=== PATIENT | male | born 1945 | race Two or more races ===

== ENCOUNTER 2016-05-21 20:13 | Emergency (ER) | payer MEDICARE ==
[~2016-05-21] VITALS: Ht 183.5 cm; Wt 118.4 kg
[2016-05-21 20:47] VITALS: BP 184/98
[2016-05-21 21:30] VITALS: BP 148/77
[2016-05-21 21:30] LABS: MEAN CORPUSCULAR HEMOGLOBIN 30.8 PG (27.0-31.0); MEAN CORPUSCULAR HGB CONC 29.9 G/DL (32.0-36.0); MEAN CORPUSCULAR VOLUME 103 FL (80-99); MEAN PLATELET VOLUME 7.2 FL (6.5-10.1); PLATELET COUNT 151 K/UL (150-450); RED BLOOD COUNT 2.46 M/UL (4.70-6.10); RED CELL DISTRIBUTION WIDTH 18.1 % (11.6-14.8); WHITE BLOOD COUNT 5.7 K/UL (4.8-10.8)
[2016-05-21 21:48] LABS: INR 1.3 (0.9-1.1); PROTHROMBIN TIME 12.9 SEC (9.30-11.50)
[2016-05-21 21:54] LABS: TROPONIN I < 0.30 ng/mL (<=0.30)
[2016-05-21 21:57] LABS: ALANINE AMINOTRANSFERASE 31 U/L (3-41); ALBUMIN/GLOBULIN RATIO 0.4 (1.0-2.7); ANION GAP 17 (5-15); ASPARTATE AMINO TRANSFERASE 51 U/L (5-40); CALCIUM 8.1 mg/dL (8.6-10.2); CARBON DIOXIDE 25 mEQ/L (20-30); CHLORIDE 94 mEQ/L (98-107); CREATININE 1.1 mg/dL (0.7-1.2); HEMOLYSIS 217; LIPASE 23 U/L (< 60); SODIUM 136 mEQ/L (135-145); TOTAL PROTEIN 8.7 g/dL (6.6-8.7)
[2016-05-21 22:07] LABS: CKMB 1.7 ng/mL (< 6.7)
[2016-05-21 22:17] LABS: APPEARANCE,URINE SLIGHTLY CLOUDY
[2016-05-21 22:18] LABS: KETONES,URINE NEGATIVE (NEGATIVE); LEUKOCYTE ESTERASE ,URINE NEGATIVE (NEGATIVE); NITRITE,URINE NEGATIVE (NEGATIVE); PH,URINE 5.5 (4.5-8.0); PROTEIN,URINE 2+ (NEGATIVE); UROBILINOGEN,URINE 1 MG/DL (0.0-1.0)
[2016-05-21 22:28] LABS: RBC,URINE 0-2 /HPF (0 - 0)
[2016-05-21 22:29] LABS: AMORPHOUS SEDIMENT,UR FEW /LPF; BACTERIA,URINE MODERATE /HPF; SQUAMOUS EPITHELIAL CELL,UR FEW /LPF (NONE/OCC)
[2016-05-21 22:30] VITALS: BP 162/85
[2016-05-21 22:39] LABS: BAND NEUTROPHILS % (MANUAL) 1 % (0-8); EOSINOPHILS % (MANUAL) 2 % (0-3); LYMPHOCYTES % (MANUAL) 4 % (20-45); NEUTROPHILS % (MANUAL) 91 % (45-75); NUCLEATED RED BLOOD CELLS 1 /100 WBC; TOTAL CELLS COUNTED 100
[2016-05-21 22:40] LABS: ANISOCYTOSIS 2+; MACROCYTES 2+; POLYCHROMASIA 1+
[2016-05-21 22:41] LABS: BASOPHILS % (MANUAL) 0 % (0-2); PLATELET ESTIMATE DECREASED; PLATELET MORPHOLOGY NORMAL
[2016-05-21] MEDS ORDERED: cefTRIAXone 1 GM in NS 55 ML IVPB ONE (22:45)
[2016-05-21 23:37] VITALS: BP 151/85
--- NOTE | 2016-05-22 | Emergency Room Report ---
Physical Exam Vital Signs Date Time Temp Pulse Resp B/P Pulse Ox O2 Delivery O2 Flow Rate FiO2 05/21/16 20:14 99.7 142 22 184/123 100 Non-Rebreather Medical Decision Making Diagnostic Impression: Primary Impression: CHF exacerbation Qualified Codes: I50.9 - Heart failure, unspecified Additional Impressions: Anemia Qualified Codes: D64.9 - Anemia, unspecified UTI (urinary tract infection) Qualified Codes: N30.00 - Acute cystitis without hematuria Proteinuria Chest pain Qualified Codes: R07.9 - Chest pain, unspecified Hyperglycemia Obesity (BMI 30-39.9) ER Course Patient was signed out to mt. He present with chest pain and shortness of breath. Labs show anemia and CHF. CT scan showed no PE. Does have CHF and probably hypertension Patient is otherwise stable for transfer to [place]. Lab Results Impression labs with anemia and elevated bnp. EKG Diagnostic Results Rate: normal Rhythm: NSR ST Segments: no acute changes Rhythm Strip Diag. Results EP Interpretation: yes Rate: 70 Rhythm: NSR, no PVC's, no ectopy Chest X-Ray Diagnostic Results EP Interpretation: Yes Findings: no consolidation, no effusion, no pneumothorax, other - cm with congestion Number of Views: 1 CT/MRI/US Diagnostic Results CT/MRI/US Diagnostic Results : Imaging Test Ordered: ct chest Impression Read by radiologist. No PE. chf Last Vital Signs Date Time Temp Pulse Resp B/P Pulse Ox O2 Delivery O2 Flow Rate FiO2 05/21/16 23:37 98.5 88 16 151/85 98 Room Air Status: improved Disposition: XFER SHT-TRM HOSP Condition: Serious Referrals: [facility] (PCP) JUAN CARLOS PAUL M.D. May 22, 2016 00:00
[2016-05-22] MEDS ORDERED: Mylanta II UD 30ml ONE (00:33)
[2016-05-22 01:47] VITALS: BP 156/94
[2016-05-22 02:39] VITALS: BP 168/87
--- NOTE | 2016-05-22 09:53 | Diagnostic Imaging Report ---
Indication: Chest pain Technique: One view of the chest Comparison: none Findings: Heart is enlarged. There is fullness to the right hilar region, probably representing prominent vasculature. There is mild interstitial congestion. No focal airspace consolidation. No definite effusions Impression: Suspect mild interstitial congestion Right hilar vascular fullness, demonstrated on subsequent chest CT angiogram to be secondary to enlarged pulmonary artery This agrees with the preliminary interpretation provided by the emergency room physician
--- NOTE | 2016-05-22 10:03 | Emergency Room Report ---
History of Present Illness General Chief Complaint: Dyspnea/Respdistress Source: Patient, EMS Present Illness HPI Patient presents with complaints of chest pain Right midsternal onset several hours ago while sitting Patient also had a component of dyspnea and shortness of breath Denies any headache or visual changes denies any back or flank pain Patient received aspirin and nitroglycerin in route he felt the pain improved from 6 found to 3/10 Denies any recent travel denies any vomiting or diarrhea Patient reports history of prostate disease Allergies: Coded Allergies: No Known Allergies (Unverified , 05/21/16) Patient History Past Medical History: see triage record Pertinent Family History: none Reviewed Nursing Documentation: PMH: Agreed, PSxH: Agreed Nursing Documentation-PMH Past Medical History: No History, Except For Hx Hypertension: Yes Hx Diabetes: Yes Review of Systems All Other Systems: negative except mentioned in HPI Physical Exam Vital Signs Date Time Temp Pulse Resp B/P Pulse Ox O2 Delivery O2 Flow Rate FiO2 05/21/16 20:14 99.7 142 22 184/123 100 Non-Rebreather Sp02 EP Interpretation: reviewed, normal General Appearance: well appearing, no apparent distress Head: normocephalic, atraumatic Eyes: bilateral eye EOMI, bilateral eye PERRL ENT: hearing grossly normal, normal pharynx, TMs + canals normal, uvula midline Neck: full range of motion, supple, no meningismus, no bony tend Respiratory: no rhonchi, no respiratory distress, no retraction, no accessory muscle use, crackles - Diffusely, and mildly tachypneic Cardiovascular #1: normal peripheral pulses, no gallop, no JVD, no murmur, tachycardia Gastrointestinal: normal bowel sounds, non tender, soft, no mass, no organomegaly, non-distended, no guarding, no hernia, no pulsatile mass, no rebound Genitourinary: no CVA tenderness Musculoskeletal: other - Previous CVA but no obvious focal deficit Neurologic: oriented x3, responsive, sensory intact Psychiatric: mood/affect normal Skin: palpation normal, other - Bilateral pitting edema bilateral extremities Lymphatic: no adenopathy Medical Decision Making Diagnostic Impression: Primary Impression: CHF exacerbation Additional Impressions: Obesity (BMI 30-39.9) Anemia Hyperglycemia Proteinuria UTI (urinary tract infection) Chest pain ER Course Patient is a fairly complex patient with multiple differential to consideration including but not limited to cardiac cardiopulmonary and vascular emergencies Patient's heart rate has improved significantly at this time the x-ray showed some mild congestion also some right perihilar fullness Troponin negative BNP was elevated Given the patient's tachycardia shortness of breath In discussion with [facility], patient has had previous prostate cancer Patient also has had abnormal chest x-ray in the past but no PE steady therefore patient had a CT chest for evaluation of PE Refer to Dr. Holland note for the full specifics Otherwise the patient CT chest was read as no acute PE Patient transferred to [facility] for further care Labs Test 05/21/16 20:36 05/21/16 21:15 05/21/16 21:45 White Blood Count 5.7 K/UL (4.8-10.8) Red Blood Count 2.46 M/UL (4.70-6.10) Hemoglobin 7.6 G/DL (14.2-18.0) Hematocrit 25.4 % (42.0-52.0) Mean Corpuscular Volume 103 FL (80-99) Mean Corpuscular Hemoglobin 30.8 PG (27.0-31.0) Mean Corpuscular Hemoglobin Concent 29.9 G/DL (32.0-36.0) Red Cell Distribution Width 18.1 % (11.6-14.8) Platelet Count 151 K/UL (150-450) Mean Platelet Volume 7.2 FL (6.5-10.1) Neutrophils (%) (Auto) % (45.0-75.0) Lymphocytes (%) (Auto) % (20.0-45.0) Monocytes (%) (Auto) % (1.0-10.0) Eosinophils (%) (Auto) % (0.0-3.0) Basophils (%) (Auto) % (0.0-2.0) Differential Total Cells Counted 100 Neutrophils % (Manual) 91 % (45-75) Lymphocytes % (Manual) 4 % (20-45) Monocytes % (Manual) 2 % (1-10) Eosinophils % (Manual) 2 % (0-3) Basophils % (Manual) 0 % (0-2) Band Neutrophils 1 % (0-8) Nucleated Red Blood Cells 1 /100 WBC Platelet Estimate Decreased Platelet Morphology Normal Polychromasia 1+ Anisocytosis 2+ Macrocytosis 2+ Prothrombin Time 12.9 SEC (9.30-11.50) Prothromb Time International Ratio 1.3 (0.9-1.1) Activated Partial Thromboplast Time 27 SEC (23-33) Sodium Level 136 mEQ/L (135-145) Potassium Level 5.0 mEQ/L (3.4-4.9) Chloride Level 94 mEQ/L (98-107) Carbon Dioxide Level 25 mEQ/L (20-30) Anion Gap 17 (5-15) Blood Urea Nitrogen 18 mg/dL (7-23) Creatinine 1.1 mg/dL (0.7-1.2) Estimat Glomerular Filtration Rate mL/min (>60) Glucose Level 170 mg/dL (74-106) Calcium Level 8.1 mg/dL (8.6-10.2) Total Bilirubin 0.7 mg/dL (0.0-1.2) Aspartate Amino Transf (AST/SGOT) 51 U/L (5-40) Alanine Aminotransferase (ALT/SGPT) 31 U/L (3-41) Alkaline Phosphatase 50 U/L (40-129) Total Creatine Kinase 111 U/L (38-174) Creatine Kinase MB 1.7 ng/mL (< 6.7) Creatine Kinase MB Relative Index 1.5 Troponin I < 0.30 ng/mL (<=0.30) Pro-B-Type Natriuretic Peptide 1725 pg/mL (0-125) Total Protein 8.7 g/dL (6.6-8.7) Albumin 2.7 g/dL (3.5-5.2) Globulin 6.0 g/dL Albumin/Globulin Ratio 0.4 (1.0-2.7) Lipase 23 U/L (< 60) Lactic Acid Level 0.90 mmol/L (0.66-2.22) Urine Color Yellow Urine Appearance Slightly cloudy Urine pH 5.5 (4.5-8.0) Urine Specific [place] 1.015 (1.005-1.035) Urine Protein 2+ (NEGATIVE) Urine Glucose (UA) Negative (NEGATIVE) Urine Ketones Negative (NEGATIVE) Urine Occult Blood 2+ (NEGATIVE) Urine Nitrite Negative (NEGATIVE) Urine Bilirubin Negative (NEGATIVE) Urine Urobilinogen 1 MG/DL (0.0-1.0) Urine Leukocyte Esterase Negative (NEGATIVE) Urine RBC 0-2 /HPF (0 - 0) Urine WBC 10-15 /HPF (0 - 0) Urine Squamous Epithelial Cells Few /LPF (NONE/OCC) Urine Amorphous Sediment Few /LPF (NONE) Urine Bacteria Moderate /HPF (NONE) EKG Diagnostic Results Rate: tachycardiac Rhythm: other ST Segments: other - nonspecific ST and T wave changes Rhythm Strip Diag. Results EP Interpretation: yes Rate: 105 Rhythm: no PVC's, no ectopy, other - sinus tach Chest X-Ray Diagnostic Results EP Interpretation: Yes Findings: no consolidation, no pneumothorax, other - Cardiomegaly, mild congestion, right perihilar fullness Number of Views: 1 CT/MRI/US Diagnostic Results CT/MRI/US Diagnostic Results : Impression CT chest: no obvious PE Last Vital Signs Date Time Temp Pulse Resp B/P Pulse Ox O2 Delivery O2 Flow Rate FiO2 05/22/16 02:39 85 18 168/87 100 Room Air 05/22/16 01:47 98.5 Status: improved Disposition: XFER SHT-TRM HOSP Condition: Serious Referrals: [facility] (PCP) CLAUDIA MAYFIELD D.O. May 22, 2016 10:03
--- NOTE | 2016-05-22 17:05 | Diagnostic Imaging Report ---
ndication: SOB, chest pain Technique: IV administration nonionic contrast. Spiral acquisitions obtained from the lung bases to the lung apices. Multiplanar and 3-D reconstructions were generated. Total dose length product 1375 mGycm. CTDIvol(s) 12, 37, 36 mGy Comparison: None Findings: Pulmonary arterial opacification is adequate although not optimal. No intraluminal filling defects or other findings to suggest acute pulmonary embolus are demonstrated. The main pulmonary artery is dilated, measuring 4 cm diameter. The right pulmonary artery is also dilated, measuring 3 cm diameter. No evidence of thoracic aortic aneurysm or dissection. No right ventricular dilatation. The heart is globally enlarged. The pulmonary parenchyma demonstrates fairly extensive groundglass opacity, only scattered areas of sparing. There are small bilateral pleural effusions. There is a 5 mm nodule in the lateral upper right lower lobe, image 54 series 9. This is noncalcified. There is a calcified nodule in the left lower lobe. No dense consolidation. There are some atelectatic changes at both lung bases. There is minimal anterior wall pericardial thickening versus fluid. There is mild edema of the mediastinal fat. No mediastinal or hilar mass or adenopathy. Included portions of the thyroid are unremarkable. No axillary or chest wall mass or adenopathy. The bones demonstrate degenerative spondylosis changes. The included upper abdominal viscera space a calcified granuloma within the spleen. Impression: Negative for evidence of acute pulmonary embolus Cardiomegaly Groundglass opacification throughout both lungs. Nonspecific, but presence of cardiomegaly suggests this may be due to pulmonary edema Dilated pulmonary artery, concerning for pulmonary arterial hypertension Small bilateral pleural effusions 5 mm nodule right upper lobe. If there are significant risk factors for lung carcinoma, short interval followup CT in 6-12 months is recommended. If there are no significant risk factors, no further followup is necessary Evidence of old granulomatous disease within the left lung and spleen Minimal anterior wall pericardial thickening versus fluid This agrees with the preliminary interpretation provided overnight by [employer] teleradiology service. The CT scanner at [facility] is accredited by the [employer] and the scans are performed using protocols designed to limit radiation exposure to as low as reasonably achievable to attain images of sufficient resolution adequate for diagnostic evaluation.
[2016-05-23 11:50] LABS: OTHERS PATHOLOGIST COMMENT
--- NOTE | 2016-05-29 14:56 | Cardiology Report ---
APPROVED REPORT EKG Measurement Heart [id number] Atrial flutter with variable AV block Nonspecific T wave abnormality Abnormal ECG
== END 2016-05-22 02:42 | disposition short-term general hospital (02) ==
LOC: EDBD 20:13 → EMR 20:55 → EDBEDREQ 21:43 → EMR 05-22 02:42
DX: I50.9 Heart failure, unspecified (principal); D64.9 Anemia, unspecified; N30.00 Acute cystitis without hematuria; R80.9 Proteinuria, unspecified; E66.9 Obesity, unspecified; Z68.35 Body mass index [BMI] 35.0-35.9, adult; I10 Essential (primary) hypertension; E11.65 Type 2 diabetes mellitus with hyperglycemia; R07.9 Chest pain, unspecified
CPT/HCPCS: 36415; 71010; 71275; 80053; 81003; 82550; 82553; 82962; 83605; 83690; 83880; 84484; 85007; 85025; 85610; 85730; 87040; 87086; 87181; 93005; 96374; 96375; 99285; J0696; J1940; Q9967